=== PATIENT | male | born 1980 | race Asian ===

== ENCOUNTER 2018-07-15 13:57 | Emergency (ER) | payer OTHER ==
[2018-07-15 14:35] LABS: ABS Lymphocytes 1.5 10^3/ul (1.0-4.8); ABS Monocytes 0.3 10^3/ul (0-0.8); ABS Neutrophils 5.6 10^3/ul (1.5-7.7); Eosinophil % 0.5 %; Hematocrit 45 % (42-52); Hemoglobin 14.8 g/dL (14.0-18.0); Lymphocyte % 20.1 %; Mean Corpuscular HGB Conc 33 g/dL (31-36); Mean Corpuscular Hemoglobin 29 pg (27-31); Mean Corpuscular Volume 89 fL (80-94); Mean Platelet Volume 8.4 fL (7.4-10.4); Nucleated Red Blood Cells % 0.1; Platelet Count 244 10^3/uL (150-450); Red Cell Distribution Width 15 % (10.5-15); White Blood Count 7.4 10^3/uL (3.5-10.8)
[2018-07-15 14:40] LABS: INR 0.97 (0.82-1.09)
[2018-07-15 15:06] LABS: Albumin 4.7 g/dL (3.2-5.2); Albumin/Globulin Ratio 1.5 (1-3); BUN/Creatinine Ratio 11.5 (8-20); EGFR African American 118.2 (>60); EGFR Non-African American 97.7 (>60); Globulin 3.1 g/dL (2-4); Potassium 3.9 mmol/L (3.5-5.0); Total Bilirubin 0.8 mg/dL (0.2-1.0); Total Protein 7.8 g/dL (6.4-8.9)
[2018-07-15 15:35] LABS: TSH (Thyroid Stimulating Horm) 1.01 mcIU/mL (0.34-5.60)
--- NOTE | 2018-07-15 16:05 | ED ---
Palpitations / Dysrhythmia - HPI Summary HPI Summary: Pt is a 37 y/o M presenting to the ED with a chief complaint of palpitations. He states they came on a while ago but it happens intermittently, lasting a couple of seconds or minutes at a time. He describes the feeling as heaviness and fast. He reports a recent 5-6 hour travel. He denies CP, SOB, caffeine use, drug use, smoking, or drinking. - History of Current Complaint Chief Complaint: EDDysrhythmPalp Time Seen by Provider: 07/15/18 15:48 Hx Obtained From: Patient Onset/Duration: Gradual Onset, Lasting Days Timing: Intermittent Episodes Lasting: - seconds-minutes Severity Initially: Moderate Severity Currently: None Character: Fast, Pounding Aggravating: Nothing Alleviating: Nothing - Allergy/Home Medications Allergies/Adverse Reactions: Allergies Allergy/AdvReac Type Severity Reaction Status Date / Time No Known Allergies Allergy Verified 06/29/12 08:02 PMH/Surg Hx/FS Hx/Imm Hx Previously Healthy: Yes Endocrine/Hematology History: Denies: Hx Diabetes Cardiovascular History: Reports: Other Cardiovascular Problems/Disorders - myocarditis Denies: Hx Hypertension Infectious Disease History: No Infectious Disease History: Denies: Traveled Outside the [place] in Last 30 Days - Family History Known Family History: Negative: Hypertension - Social History Alcohol Use: None Hx Substance Use: No Substance Use Type: Reports: None Hx Tobacco Use: No Smoking Status (MU): Never Smoked Tobacco Review of Systems Positive: Palpitations. Negative: Chest Pain Negative: Shortness Of Breath All Other Systems Reviewed And Are Negative: Yes Physical Exam - Summary Physical Exam Summary: Appearance: Well appearing, no pain distress Skin: warm, dry, reflects adequate perfusion Head/face: normal Eyes: EOMI, BIPIN ENT: normal Neck: supple, non-tender Respiratory: CTA, breath sounds present Cardiovascular: RRR, pulses symmetrical Abdomen: non-tender, soft Musculoskeletal: normal, strength/ROM intact Neuro: normal, sensory motor intact, A&Ox3 Triage Information Reviewed: Yes Vital Signs On Initial Exam: Initial Vitals Temp Pulse Resp BP Pulse Ox 98.6 F 77 18 117/76 97 07/15/18 14:08 07/15/18 14:08 07/15/18 14:08 07/15/18 14:08 07/15/18 14:08 Vital Signs Reviewed: Yes Diagnostics - Vital Signs Vital Signs Temp Pulse Resp BP Pulse Ox 07/15/18 14:08 98.6 F 77 18 117/76 97 - Laboratory Lab Results: Lab Results 07/15/18 07/15/18 07/15/18 Range/Units 14:19 14:19 14:19 WBC 7.4 (3.5-10.8) 10^3/uL RBC 5.10 (4.18-5.48) 10^6 /uL Hgb 14.8 (14.0-18.0) g/dL Hct 45 (42-52) % MCV 89 (80-94) fL MCH 29 (27-31) pg MCHC 33 (31-36) g/dL RDW 15 (10.5-15) % Plt Count 244 (150-450) 10^3/uL MPV 8.4 (7.4-10.4) fL Neut % (Auto) 74.8 % Lymph % (Auto) 20.1 % Walton % (Auto) 4.2 % Eos % (Auto) 0.5 % Baso % (Auto) 0.4 % Absolute Neuts (auto) 5.6 (1.5-7.7) 10^3/ul Absolute Lymphs (auto) 1.5 (1.0-4.8) 10^3/ul Absolute Monos (auto) 0.3 (0-0.8) 10^3/ul Absolute Eos (auto) 0.0 (0-0.6) 10^3/ul Absolute Basos (auto) 0.0 (0-0.2) 10^3/ul Absolute Nucleated RBC 0.0 10^3/ul Nucleated RBC % 0.1 INR (Anticoag Therapy) 0.97 (0.82-1.09) Sodium 140 (135-145) mmol/L Potassium 3.9 (3.5-5.0) mmol/L Chloride 103 (101-111) mmol/L Carbon Dioxide 30 (22-32) mmol/L Anion Gap 7 (2-11) mmol/L BUN 10 (6-24) mg/dL Creatinine 0.87 (0.67-1.17) mg/dL Est GFR ( Amer) 118.2 (>60) Est GFR (Non-Af Amer) 97.7 (>60) BUN/Creatinine Ratio 11.5 (8-20) Glucose 140 H (70-100) mg/dL Lactic Acid (0.5-2.0) mmol/L Calcium 10.0 (8.6-10.3) mg/dL Magnesium 2.0 (1.9-2.7) mg/dL Total Bilirubin 0.80 (0.2-1.0) mg/dL AST 15 (13-39) U/L ALT 15 (7-52) U/L Alkaline Phosphatase 50 (34-104) U/L Troponin I 0.00 (<0.04) ng/mL Total Protein 7.8 (6.4-8.9) g/dL Albumin 4.7 (3.2-5.2) g/dL Globulin 3.1 (2-4) g/dL Albumin/Globulin Ratio 1.5 (1-3) TSH 1.01 (0.34-5.60) mcIU/mL 07/15/18 Range/Units 14:19 WBC (3.5-10.8) 10^3/uL RBC (4.18-5.48) 10^6 /uL Hgb (14.0-18.0) g/dL Hct (42-52) % MCV (80-94) fL MCH (27-31) pg MCHC (31-36) g/dL RDW (10.5-15) % Plt Count (150-450) 10^3/uL MPV (7.4-10.4) fL Neut % (Auto) % Lymph % (Auto) % Walton % (Auto) % Eos % (Auto) % Baso % (Auto) % Absolute Neuts (auto) (1.5-7.7) 10^3/ul Absolute Lymphs (auto) (1.0-4.8) 10^3/ul Absolute Monos (auto) (0-0.8) 10^3/ul Absolute Eos (auto) (0-0.6) 10^3/ul Absolute Basos (auto) (0-0.2) 10^3/ul Absolute Nucleated RBC 10^3/ul Nucleated RBC % INR (Anticoag Therapy) (0.82-1.09) Sodium (135-145) mmol/L Potassium (3.5-5.0) mmol/L Chloride (101-111) mmol/L Carbon Dioxide (22-32) mmol/L Anion Gap (2-11) mmol/L BUN (6-24) mg/dL Creatinine (0.67-1.17) mg/dL Est GFR ( Amer) (>60) Est GFR (Non-Af Amer) (>60) BUN/Creatinine Ratio (8-20) Glucose (70-100) mg/dL Lactic Acid 1.3 (0.5-2.0) mmol/L Calcium (8.6-10.3) mg/dL Magnesium (1.9-2.7) mg/dL Total Bilirubin (0.2-1.0) mg/dL AST (13-39) U/L ALT (7-52) U/L Alkaline Phosphatase (34-104) U/L Troponin I (<0.04) ng/mL Total Protein (6.4-8.9) g/dL Albumin (3.2-5.2) g/dL Globulin (2-4) g/dL Albumin/Globulin Ratio (1-3) TSH (0.34-5.60) mcIU/mL Result Diagrams: 07/15/18 14:19 07/15/18 14:19 Lab Statement: Any lab studies that have been ordered have been reviewed, and results considered in the medical decision making process. - Radiology CXR Summary of Radiographic Findings: No active cardiopulmonary disease is noted. ED physician has reviewed this report. - EKG 1412 Cardiac Rate: NL - 72bpm EKG Rhythm: Sinus Rhythm ST Segment: Normal Ectopy: None Summary of EKG Findings: EKG at 1412 shows NSR at 72bpm with no STEMI. Course/Dx - Course Course Of Treatment: Pt is a 37 y/o M presenting to the ED with a chief complaint of palpitations. He describes the feeling as heaviness and fast. He reports a recent 5-6 hour travel. He denies CP, SOB, caffeine use, drug use, smoking, or drinking. Pt's physical exam is normal. EKG at 1412 shows NSR at 72bpm with no STEMI. CXR shows no active cardiopulmonary disease. Pt will be discharged home with a dx of palpitations. The pt is stable and agreeable with this plan. - Diagnoses Differential Diagnosis/HQI/PQRI: Positive: Panic Disorder, Paroxymal SVT Provider Diagnoses: Palpitations Discharge - Sign-Out/Discharge Documenting (check all that apply): Patient Departure Patient Received Moderate/Deep Sedation with Procedure: No - Discharge Plan Condition: Stable Disposition: HOME Patient Education Materials: Heart Palpitations (ED) Referrals: Rebecca Roper MD [Primary Care Provider] - Adolfo Carlson MD [Medical Doctor] - Additional Instructions: Please follow up with Dr. Carlson of cardiology within the next 2-3 days. Return to the ED with any new or worsening symptoms. - Billing Disposition and Condition Condition: STABLE Disposition: Home - Attestation Statements Document Initiated by Scribe: Yes Documenting Scribe: Yari Arcos Provider For Whom Scribe is Documenting (Include Credential): Terry Jon MD. Scribe Attestation: Yari Voss, lillianed for Terry Jon MD. on 07/15/18 at 1742. Scribe Documentation Reviewed: Yes Provider Attestation: The documentation as recorded by the Yari laura accurately reflects the service I personally performed and the decisions made by Terry nj MD. Status of Scribe Document: Viewed
[2018-07-15 17:22] VITALS: BP 119/70
== END 2018-07-15 17:16 | disposition home or self-care (01) ==
LOC: ED 13:57
DX: R00.2 Palpitations (principal)
CPT/HCPCS: 36415; 71045; 80053; 83605; 83735; 84443; 84484; 85025; 85379; 85610; 93005; 99282